=== PATIENT | female | born 1955 ===

== ENCOUNTER 2025-03-28 18:19 | Inpatient (IN) | payer MEDICARE, OTHER, SELFPAY ==
[2025-03-28] VITALS (10 sets, daily range): BP systolic 108–133; BP diastolic 56–75; BMI 20.2
--- NOTE | 2025-03-28 14:18 | W.PN.CARDCBS ---
Today's Communication / Plan
-
[facility] today
Impression / Plan
-
This is the H&P summary.
Full H&P scanned into chart.
PCP: Lily Fernández MD
CDY: New to [facility]- Kilo Anderson MD
HPI: 70 y/o female, PMH sig for HLD who presented to [facility] ER with new onset exertional chest discomfort and dyspnea, as well as fatigue and increased exercise tolerance, progressive over the last several weeks. She seen PCP about 2 weeks ago and had
a stress test in the interim.
Today, her symptoms lasted longer than usual, and she called PCP and was told that her stress test was positive and to go to the ER. EMS was called, she was given 1SL NTG with moderate relief, EKG SB 58 without acute changes. Troponin levels
negative x3. Started on heparin gtt and given 324mg aspirin. Transferred for [facility] today.
03/26 NST- 2mm downsloping ST depressions infero/inferolateral
mid-basal anterior reversible defect c/w ischemia, EF 60%
03/22 Echo- nml LVSF, EF 65%, trace MR, trace TR
IMPRESSION:
ACS/USA with negative troponin x3
Abnormal NST
HLD
PLAN:
70 y/o w/progressive exertional chest pain/dyspnea/fatigue, abnormal NST with preserved EF
Negative troponins
[facility] today
aspirin 324mg given in ER
continue statin therapy- check lipid profile
plan pending cath results
followup with Dr. Anderson at d/c
Progress Note - Flat Cutter
Subjective
Date of Service: March 28, 2025
[2025-03-28] MEDS: NSS 192 ML IV (14:37)
[2025-03-28 16:48] LABS: ACT-LR - POC 242 Seconds (116-155)
--- NOTE | 2025-03-28 18:17 | ITS.CL.ANGIO ---
[employer] - Angioplasty
Angioplasty
Procedure Report:
LEFT HEART CATHETERIZATION
Date of Procedure: March 28, 2025
Procedures performed:
1: Coronary angiography
2: Left ventricular hemodynamic assessment
3: Complex PCI of the right coronary artery with placement of 2 overlapping drug-eluting stents (3.5 x 22 mm Mentor and 3.5 x 30 mm Greg)
Primary Care Provider: Dr. Lily Fernández
Primary Rehabilitation Inspector: Dr. Kilo Anderson
INDICATION: The patient is a 70-year-old woman with a past medical history significant for a high calcium score who presents with unstable angina. EKGs are benign and serial enzymes are negative. She has had no symptoms for the past few weeks.
Nuclear perfusion stress test was abnormal with positive EKGs and basal/mid reversible anterior defect on perfusion imaging.
ACCESS: The patient was prepped and draped in usual sterile fashion. A 6 Namibian sheath was placed in the right radial artery using the Seldinger over the wire technique.
HEMODYNAMIC FINDINGS (mmHg):
LV(s/d,EDP): 136/7, 19
Ao(s/d,m): 136/67, 96
ANGIOGRAPHIC FINDINGS:
Single-plane Left Ventriculography in [place] Projection: Not done. Normal LV function by echo performed on March 22, 2025
Coronary Angiography:
Dominance: Right
Left Main: Normal
Left Anterior Descending: The left anterior descending artery is a medium caliber vessel that is heavily calcified throughout its course with diffuse disease throughout and several calcified areas. There is diffuse 30 to 40% smooth proximal disease
before the takeoff of the large first septal branch. The mid LAD has a focal area that is not diseased where the major diagonal branch takes off from. The diagonal branch is a medium caliber vessel that has a smooth 50 to 60% mid stenosis that is
calcified with normal distal flow. Beyond the diagonal takeoff there is a calcified smooth 60 to 70% narrowing that is then followed by a focal calcified distal 70% stenosis. Despite this there appears to be normal flow in all distal vessels.
Left Circumflex: The left circumflex is a relatively large nondominant system that gives rise to 1 major bifurcating obtuse marginal branch. The circumflex has only mild proximal luminal irregularities. There is a long area of 30 to 40% disease
involving the proximal portion of the OM1. The distal vessels have normal flow supplying the lateral apex.
Right Coronary: The right coronary artery is a large-caliber dominant vessel. It has a heavily calcified serpiginous focal mid lesion with a 80% smooth stenosis followed by a grapelike poststenotic aneurysmal segment. The exit of this comes off in
an eccentric way and has a preocclusive 95% stenosis at the outflow. There is poststenotic dilatation beyond this. At the acute margin there is a long area of 50 to 60% stenosis. The distal RCA appears normal in the AV groove. There is a smooth
50% true ostial PDA stenosis. The PLV branch is a medium caliber system that has filling from both proximal right to right and bcea-mb-svzta collaterals.
Percutaneous Coronary Intervention (PCI): In light of the above angiographic findings, I consulted with Dr. Giovanni Esteves from CT surgery who reviewed the films. We felt that given her unstable chest pain symptoms with a resting flow abnormality in
the right that this was most likely the culprit. Our feeling was that if this could be treated percutaneously we would stabilize normal blood flow to the largest amount of myocardium. We both agreed that the LAD was not a great surgical target nor
did we feel that based on the extent of diffuse calcific disease multivessel stenting was rosales. The patient was given unfractionated heparin. She was pretreated with aspirin. A loading dose of Plavix 600 mg was given on the table at the end of
the case. A 6 Namibian AL 0.75 guiding catheter was used to engage the right which was crucial to the success of this procedure providing excellent guide support. Attempts with a BMW wire, Fielder XT wire, and Whisper wire were not readily
successful. Ultimately with persistence and some luck the whisper wire was successfully advanced through the eccentric aneurysmal midportion with the assistance of a Timeet QuickCross microcatheter. After getting across the preocclusive mid
lesion it was very challenging to get the whisper wire down through the acute margin. This was ultimately successful and the Timeet catheter was advanced and the Whisper wire was exchanged for a long Extra S'port wire. This provided
excellent support to deliver a 2.0 x 20 mm balloon which was used to dilate at the acute margin and at the critical mid RCA stenosis. A waist was noted in the preocclusive mid lesion. A 2.5 x 12 mm noncompliant balloon at 18 vignesh did not crack the
lesion. Redilation with the same balloon at 20 vignesh for prolonged inflation did ultimately result in opening up the resistant lesion. In light of the diffuse calcification I elected to redilate the entire segment with a 3.0 mm diameter noncompliant
balloon at high pressure. Next a 3.5 x 22 mm Greg drug-eluting stent was deployed at the acute margin at 16 vignesh for 30 seconds. A second 3.5 x 30 mm Greg drug-eluting stent was then placed in overlapping fashion in the mid/proximal RCA deployed at
18 vignesh for 30 seconds.
FINAL RESULT: 0% in-stent residual stenosis with an outstanding angiographic result and INDIGO-3 flow in all vessels.
Fluoroscopy Time (min): 23
Radiation Dose (mGy): 574
DAP (Gy.cm2): 24
Closure device: None. A TR band was applied for hemostasis at the right wrist.
Complications: None.
ASSESSMENT:
1: Successful complex PCI of the right coronary artery with placement of 2 overlapping stents as described above.
2: Residual multi level disease in the LAD as described above. Given the diffuse nature of this disease, I would favor medical therapy first. I do not think that surgical bypass is a good option based on the anatomy and would hold off on extensive
stenting unless she had symptoms refractory to medical therapy or a large territory of ischemia was demonstrated on noninvasive imaging.
CONCLUSIONS and RECOMMENDATIONS:
1: Routine post drug-eluting stent medical therapy and monitoring with dual antiplatelet therapy with aspirin and clopidogrel uninterrupted for a year and aspirin 81 mg daily for life.
2: Medical therapy for coronary artery disease with close clinical follow-up.
3: Consider repeat stress Myoview imaging to formally assess LAD territory ischemic burden now that the RCA ischemia is resolved.
Lionel Villareal M.D.
--- NOTE | 2025-03-28 18:43 | PTCARENOTE ---
Report from director of labor relations. Pt admitted to room 0594. Pt s/p RCA stent x2. Right radial site intact. TR band in place. Right radial pulse palpable. Hand warm, good cap refill. Site checks as documented in worklist. Admission questions completed. Home
medications confirmed. Dinner ordered. Pt oriented to room. No c/o pain at this time. Call hunt within reach.
[2025-03-28] MEDS: CRESTOR 20 MG PO (19:25)
--- NOTE | 2025-03-28 23:10 | PTCARENOTE ---
Rec'd pt at change of shift. Pt denies any pain or discomfort. Sr on TELE monitor, VSS, and AAO*3. R radial band weaned off as ordered. PT agreed to activity restrictions. See MAR and flowchart for full pt care and assessment.
[2025-03-29 04:12] VITALS: BP 125/67
[2025-03-29 04:40] LABS: Hematocrit 38.2 % (37.0-47.0); Hemoglobin 12.7 g/dL (12.0-16.0); Mean Corp Hgb Conc. 33.2 g/dL (33.0-37.0); Mean Corpuscular Volume 83.8 fL (81.0-99.0); Platelet Count 206 10^3/uL (130-400); Red Cell Dist. Width 12.9 % (11.5-14.5)
[2025-03-29 04:45] VITALS: BMI 19.9
[2025-03-29 05:09] LABS: Blood Urea Nitrogen 15 mg/dl (7-17); Calcium 9.8 mg/dl (8.4-10.2); Carbon Dioxide 24 mmol/L (22-30); Chloride 106 mmol/L (98-107); Estimated Creatinine Clearance 74 ml/min; Glucose 82 mg/dl (70-99); HDL Cholesterol 78 mg/dl; LDL Cholesterol, Calculated 151 mg/dl; Potassium 4.4 mmol/L (3.5-5.1); Sodium 136 mmol/L (135-145); Very Low Density Lipoprotein 11 mg/dl (0-30); eGFR > 60.00
[2025-03-29 07:43] LABS: ACT-LR - POC > 397 Seconds (116-155)
[2025-03-29 07:43] LABS: ACT-LR - POC > 397 Seconds (116-155)
[2025-03-29 08:01] VITALS: BP 120/87
[2025-03-29] MEDS: LOW STRENGTH ASPIRIN 81 MG PO (09:00)
[2025-03-29] MEDS: PLAVIX 75 MG PO (09:00)
--- NOTE | 2025-03-29 09:23 | W.PN.CARDCBS ---
Addendum entered and electronically signed by Meliton Kelley MD 03/29/25 17:47:
I saw and examined the patient.
The Frame Gate Mortiser Operator's note was reviewed and I agree with the note.
Comment:
GEN: No distress, awake, Ox3
HEENT: supple, anicteric, mmm
LUNGS: CTA, no wheezes/rales
CV: Reg, S1/S2, 1/6 syst LSB, no gallop
ABD: soft, BS+, NT/ND
EXT: No edema
NEURO: Gross non-focal
SKIN: No rash
PLan:
Overall doing well status post RCA PCI. She does have some residual LAD disease.
Continue aspirin and Plavix.
Continue Crestor.
Okay for discharge with follow-up with [facility]
Original Note:
Today's Communication / Plan
-
unstable angina post PCI RCAx2
DAPT
stable for d/c home today
Impression / Plan
-
This is the H&P summary.
Full H&P scanned into chart.
PCP: Lily Fernández MD
CDY: New to [facility]- Kilo Anderson MD
HPI: 70 y/o female, PMH sig for HLD who presented to [facility] ER with new onset exertional chest discomfort and dyspnea, as well as fatigue and increased exercise tolerance, progressive over the last several weeks. She seen PCP about 2 weeks ago and had
a stress test in the interim.
Today, her symptoms lasted longer than usual, and she called PCP and was told that her stress test was positive and to go to the ER. EMS was called, she was given 1SL NTG with moderate relief, EKG SB 58 without acute changes. Troponin levels
negative x3. Started on heparin gtt and given 324mg aspirin. Transferred for [facility] today.
03/26 NST- 2mm downsloping ST depressions infero/inferolateral
mid-basal anterior reversible defect c/w ischemia, EF 60%
03/22 Echo- nml LVSF, EF 65%, trace MR, trace TR
IMPRESSION:
ACS/USA with negative troponin x3
Abnormal NST
HLD
PLAN:
post PCI RCA x2 BAILEY, residual LAD disease medical management
rad site stable
feels great, denies cp, sob
tele SR/SB no ectopy
DAPT ASA/plavix
LDL 151 will increase rosuvastatin to 20mg daily
Cardiac rehab c/s
f/u Dr. Anderson in 2-4 weeks
oob ambulate
d/c home later today
Progress Note - Public Health Informatician
Subjective
Date of Service: March 29, 2025
denies cp, sob
Objective
Labs:
03/29/25 04:24
03/29/25 04:24
Labs
Hgb 12.7 g/dL (12.0-16.0) 03/29/25 04:24
Hct 38.2 % (37.0-47.0) 03/29/25 04:24
Plt Count 206 10^3/uL (130-400) 03/29/25 04:24
Sodium 136 mmol/L (135-145) 03/29/25 04:24
Potassium 4.4 mmol/L (3.5-5.1) 03/29/25 04:24
BUN 15 mg/dl (7-17) 03/29/25 04:24
Creatinine 0.7 mg/dL (0.6-1.0) 03/29/25 04:24
Glucose 82 mg/dl (70-99) 03/29/25 04:24
Vital Signs and I&O:
Vital Signs
Temp Pulse Resp BP Pulse Ox
97.5 F 62 20 120/87 98
03/29/25 08:01 03/29/25 08:01 03/29/25 08:01 03/29/25 08:01 03/29/25 09:03
Vital Signs
Temp Pulse Resp BP Pulse Ox
97.5 F 62 20 120/87 98
03/29/25 08:01 03/29/25 08:01 03/29/25 08:01 03/29/25 08:01 03/29/25 09:03
Intake & Output
03/27/25 03/28/25 03/29/25 03/30/25
06:59 06:59 06:59 06:59
Intake Total 680 / 680
Balance 680 / 680
Physical Exam
Physical Exam
NAD, AOX3
S1, s2, RRR
CTAB, non labored, no wheeze
SNTND bsx4
R rad site c/d/i no HT, good pulse
[2025-03-29 11:28] VITALS: BP 127/80
--- NOTE | 2025-03-29 11:45 | CM ---
Reviewed chart. Met with Mrs. Ovalle to review discharge plans. She states she is feeling well and maybe able to go home today. she states prior to admission she resides with her spouse in a two story home with three steps to enter. She states she
has a full flight of steps to get to bedroom/full bathroom. She states she has a powder room on the firt floor. She states prior to admission she was independent with ambulation and adls. She states she does not have any DME in the home. She states
she has a prescription plan and uses [facility]. Medical work-up in progress. The discharge plan is to return home with her spouse when medically stable.
--- NOTE | 2025-03-29 11:46 | W.DS.TRANS ---
DC Summary - Business Planning Analyst
-
Discharge Instructions:
Discharge Diagnosis/Procedures Angioplasty and stent to Right Coronary artery x
2
Diet Low Cholesterol
Driving Restrictions No driving for 24 hours
Other Services Cardiac Rehab
Instructions:
Stand-Alone Forms: DC Instructions- Cath/EP Lab
Changes to Home Medications: Yes
Discharge Medications:
DC Medications w/original date entered in [email or web address]
calcium 500 mg (as carbonate)-vitamin D3 10 mcg (400 unit) tablet (Calcium 500 With D) 2 tab PO DAILY Supplement 03/28/25
estradiol 0.01% (0.1 mg/gram) vaginal cream 1 g vaginal .2XWEEK Hormonal Agent 03/28/25
magnesium 250 mg tablet 250 mg PO QPM Supplement 03/28/25
aspirin 81 mg chewable tablet 81 mg PO DAILY #1 tab 03/29/25
clopidogrel 75 mg tablet 75 mg PO DAILY #90 tabs 03/29/25
rosuvastatin 20 mg tablet 20 mg PO QPM #90 tabs 03/29/25
Home Medication Changes
new to plavix, asa and increased rosuvastatin dose
Pending Results: No
--- NOTE | 2025-03-29 12:11 | PTCARENOTE ---
Pt up walking in halls at a fast pace without problem. Pt seen by Faina Dinh NP and . Telemetry and IV device removed. discharge instructions reviewed with pt regarding activity and driving restrictions, medications and their possible side
effects, wound care, reproting cares and concerns and follow up appt's. Excellent understanding verbalized. Pt ambulated with RN and was discharged to home.
== END 2025-03-29 12:14 | disposition home or self-care (01) | DRG 322 ==
LOC: IVU 18:19
PROVIDERS: Nurse Practitioner; ADMITTING PHYSICIAN Internal Medicine Interventional Cardiology; ATTENDING PHYSICIAN Internal Medicine Interventional Cardiology; FAMILY PHYSICIAN Family Medicine
PROC: B2111ZZ Fluoroscopy of Multiple Coronary Arteries using Low Osmolar Contrast (ICD-10-PCS; 2025-03-28)
PROC: B2151ZZ Fluoroscopy of Left Heart using Low Osmolar Contrast (ICD-10-PCS; 2025-03-28)
PROC: 027035Z Dilation of Coronary Artery, One Artery with Two Drug-eluting Intraluminal Devices, Percutaneous Approach (ICD-10-PCS; 2025-03-28)
PROC: 4A023N7 Measurement of Cardiac Sampling and Pressure, Left Heart, Percutaneous Approach (ICD-10-PCS; 2025-03-28)
DX: I25.110 Atherosclerotic heart disease of native coronary artery with unstable angina pectoris (principal); E78.5 Hyperlipidemia, unspecified
CPT/HCPCS: 80048; 80061; 85027; 85347; 93005; 93458; C1725; C1769; C1874; C1887; C1894; C9600; Q9967

== ENCOUNTER 2025-04-08 12:02 | Emergency (ER) | payer MEDICARE, OTHER, SELFPAY ==
[2025-04-08 12:07] VITALS: BP 147/76
--- NOTE | 2025-04-08 12:34 | ED.GENMED ---
History of Present Illness
General
Chief Complaint: Chest Pain
Source: patient
Exam Limitations: none
Time Seen by Provider: 04/08/25 12:20
History of Present Illness
History of Present Illness:
70-year-old female with history of coronary artery disease, just had 2 stents placed 2 weeks ago presents with persistent and increasing chest pain. The pain today started at 10 AM while sitting at [employer]. Has been a constant discomfort to the
right side of her chest. She has noticed some shortness of breath with exertion. No pleuritic component. She is on 75 mg of Plavix daily as well as a baby aspirin both of which she took today. No nausea or diaphoresis. She was having symptoms
similar to this prior to receiving 2 stents. She failed the stress test and was sent for stent placement at that time
Phy Exam
Physical Exam
Physical Exam:
General: Well-appearing female no acute distress
HEENT normocephalic atraumatic
Heart: Regular rate and rhythm
Lungs: Clear no wheeze
Abdomen soft nontender
Extremities: No cyanosis
Scores
Heart Score for Chest Pain Patients
STEMI patient?: No
History: Slightly or Non-Suspicious
ECG: Normal
Age: >/= 65 years
Risk Factors: >/= 3 Risk Factors or History of CAD
Troponin: </= Normal Limit
Heart Score for Chest Pain Patients: 4
Heart Score Risk: 20.3% MACE over next 6 weeks
Course
Orders/Labs/Results
Orders:
Orders
04/08/25 12:03
Electrocardiogram (*1) Urgent
Reason for Study: Chest Pain
EKG- Treatment ONCE
04/08/25 12:30
Aspirin Chewable [Low Strength Aspirin] 243 mg PO NOW STA
04/08/25 12:40
CR Chest - 2 Views Urgent
Comment:
Reason For Exam: chest pain
04/08/25 12:49
Complete Blood Count/With Diff Urgent
Comprehensive Metabolic Panel Urgent
Lipase Urgent
Troponin I Urgent
Abnormal Lab Results
04/08/25
12:49
Hct 36.9 L %
(37.0-47.0)
Lymphocytes % 19.8 L %
(20.5-51.1)
Sodium 131 L mmol/L
(135-145)
04/08/25 12:49
04/08/25 12:49
Vital Signs
Initial and Last Documented VS:
Initial Vital Signs
Temp Pulse Resp BP Pulse Ox
97.7 F 60 18 147/76 99
04/08/25 12:07 04/08/25 12:07 04/08/25 12:07 04/08/25 12:07 04/08/25 12:07
Last Documented Vital Signs
Temp Pulse Resp BP Pulse Ox
97.7 F 49 10 111/68 100
04/08/25 12:07 04/08/25 13:15 04/08/25 13:15 04/08/25 13:00 04/08/25 13:15
MDM/Problems Addressed
Differential Diagnosis Includes:
Chest pain persistent and worsened quality since 10 AM. Consider angina versus GERD. Unlikely to be PE.
EKG shows sinus bradycardia which is baseline. Check troponin. Aspirin ordered
*Pulse Oximetry
SaO2: 99
Oxygen Mode of Delivery: Room air
Patient hypoxic: no
*Critical Care Note
Total Time (30-74mins, 75-104mins- exclusive of procedures): Not Applicable
Update Note
Update Note:
Patient reexamined pain-free now. Chest x-ray clear troponin undetectable. Discussed with emergency room attending as well as cardiology. Patient has an appointment with her pure pak machine operator who did the stents tomorrow. Cardiology recommended
discharging with follow-up. They did also recommend 30 mg of Imdur daily however patient wishes to wait 1 day until she sees her pure pak machine operator to discuss this. Return precautions were given
ED Attending Note
-
Portions of this chart may have been created with voice recognition software.� Occasional wrong word or��sound alike� substitutions may have occurred due to the inherent limitations of voice recognition software.
Discharge Plan
Departure
Patient Disposition: Home (Routine Discharge)
Date of Disposition: 04/08/25
Time of Disposition: 14:35
Patient with high blood pressure during this ER visit?: No
Discharge Problem:
Chest pain
Instructions: Chest Pain DCA Follow Up
Prescriptions:
No Action
estradiol 0.01 % (0.1 mg/gram) Cream
1 g VAGINAL .2XWEEK
calcium carbonate-vitamin D3 [Calcium 500 With D] 500 mg-10 mcg (400 unit) Tablet
2 tab PO DAILY
magnesium 250 mg Tablet
250 mg PO QPM
clopidogrel 75 mg Tablet
75 mg PO DAILY Qty: 90 5RF
aspirin 81 mg Tablet,Chewable
81 mg PO DAILY Qty: 1 0RF
rosuvastatin 20 mg Tablet
20 mg PO QPM Qty: 90 5RF
Referrals:
Lily Fernández MD [Family Provider, [facility]]
Activity Restrictions/Additional Instructions:
Please follow up as planned with Dr. Villareal tomorrow. Return here if needed.
Interventions
Interventions:
*Risk Screen - Suicide Last Done: 04/08/25 12:07
*General Assessment Last Done: 04/08/25 12:07
*Neglect/Abuse Screening Last Done: 04/08/25 12:07
*ED- Fall Risk Assessment Last Done: 04/08/25 12:36
*ED COVID-19 Vaccine History Last Done: 04/08/25 12:36
ED- Cardiac Assessment Last Done: 04/08/25 12:36
Discharge Date and Time
Print Language: ARABIC
[2025-04-08 12:36] VITALS: BP 125/77; BMI 20.8
[2025-04-08 12:55] LABS: Hematocrit 36.9 % (37.0-47.0); Hemoglobin 12.4 g/dL (12.0-16.0); Mean Corp Hgb Conc. 33.6 g/dL (33.0-37.0); Mean Corpuscular Volume 81.8 fL (81.0-99.0); Nucleated Red Blood Cells % 0 %; Platelet Count 235 10^3/uL (130-400); Red Cell Dist. Width 12.6 % (11.5-14.5)
[2025-04-08] MEDS: LOW STRENGTH ASPIRIN 243 MG PO (12:58)
[2025-04-08 13:00] VITALS: BP 111/68
--- NOTE | 2025-04-08 13:05 | EDRN ---
Received patient on stretcher with c/o mid chest pressure/dull aching that started this morning while sitting in [employer]. Denies SOB,nausea/vomiting,diaphoresis and radiation.
[2025-04-08 13:11] LABS: ALT (SGPT) 12 U/L (0-35); AST (SGOT) 19 U/L (14-36); Albumin 4.3 g/dl (3.5-5.0); Alkaline Phosphatase 60 U/L (38-126); Blood Urea Nitrogen 11 mg/dl (7-17); Calcium 10.2 mg/dl (8.4-10.2); Carbon Dioxide 26 mmol/L (22-30); Chloride 100 mmol/L (98-107); Estimated Creatinine Clearance 78 ml/min; Glucose 96 mg/dl (70-99); Lipase 81 U/L (23-300); Potassium 4.3 mmol/L (3.5-5.1); Sodium 131 mmol/L (135-145); Total Protein 6.9 g/dl (6.3-8.2); eGFR > 60.00
[2025-04-08 13:24] LABS: Troponin I < 0.012 ng/ml
[2025-04-08 14:56] VITALS: BP 119/73
--- NOTE | 2025-04-08 15:05 | EDRN ---
Reviewed discharge instructions with patient. Verbalized understanding. Ambulated with steady gait to the lobby.
[2025-04-08 15:07] VITALS: BP 119/73
== END 2025-04-08 15:08 | disposition home or self-care (01) ==
LOC: EMR 12:02
PROVIDERS: Physician Assistant; EMERGENCY PHYSICIAN Emergency Medicine; FAMILY PHYSICIAN Family Medicine
DX: R07.89 Other chest pain (principal); Y92.22 Religious institution as the place of occurrence of the external cause; I25.10 Atherosclerotic heart disease of native coronary artery without angina pectoris; Z79.02 Long term (current) use of antithrombotics/antiplatelets; Z95.5 Presence of coronary angioplasty implant and graft
CPT/HCPCS: 99283; 71046; 80053; 83690; 84484; 85025; 93005